=== PATIENT | male | born 1935 | race Caucasian/White ===

== ENCOUNTER 2016-03-01 22:52 | Emergency (ER) | payer MEDICARE | END 2016-03-02 03:14 | disposition home or self-care (01) | LOC: ER 22:52 | DX: R04.0 Epistaxis (principal); I25.2 Old myocardial infarction; Z95.5 Presence of coronary angioplasty implant and graft; Z95.0 Presence of cardiac pacemaker; E78.00 Pure hypercholesterolemia, unspecified; Z79.82 Long term (current) use of aspirin; F17.200 Nicotine dependence, unspecified, uncomplicated | CPT/HCPCS: 36415; 80053; 85025; 85610 ==

== ENCOUNTER 2016-03-02 04:13 | Emergency (ER) | payer MEDICARE ==
[2016-03-02] MEDS ORDERED: MORPHINE 10 MG VIAL ONE (04:59)
[2016-03-02] MEDS ORDERED: ONDANSETRON ODT 4 MG TAB ONE (05:00)
== END 2016-03-02 06:24 | disposition home or self-care (01) ==
LOC: ER 04:13
DX: R04.0 Epistaxis (principal); I25.2 Old myocardial infarction; Z95.5 Presence of coronary angioplasty implant and graft; E78.00 Pure hypercholesterolemia, unspecified; Z95.0 Presence of cardiac pacemaker; Z79.82 Long term (current) use of aspirin; F17.200 Nicotine dependence, unspecified, uncomplicated
CPT/HCPCS: 96372